=== PATIENT | male | born 1980 | race Caucasian/White ===

== ENCOUNTER 2019-10-02 20:39 | Emergency (ER) | payer OTHER ==
[2019-10-02 22:20] VITALS: BP 149/90
[2019-10-02] MEDS ORDERED: DIPH/PERTUSS(ACELL)/TETANUS VAC/PF 0.5 ML SYR (>=10YO) IM ONE (22:25)
--- NOTE | 2019-10-02 22:44 | ER Document Report ---
ED Wound - General Chief Complaint: Laceration Stated Complaint: LACERATION LEFT FINGER Time Seen by Provider: 10/02/19 22:24 Mode of Arrival: Ambulatory Information source: Patient Notes: Patient is a 39-year-old male comes emergency room complaining of nipping and of his left middle finger while cutting with a knife. Patient states that 1 could bleeding so was recommended come down to emergency room. States last tetanus shot he is received was when he is in [employer] 13 years ago. He was using a kitchen knife at the time of the incident tonight. Denies any medical problems. Does not smoke drink or do drugs. TRAVEL OUTSIDE OF THE [place] IN LAST 30 DAYS: No - HPI Patient complains to provider of: Laceration Occurred: Just prior to arrival Onset/Duration: Sudden Quality of pain: Achy Severity: Moderate Pain Level: 2 Context: Injury Skin Temperature: Warm Skin Color: Normal, [place] Capillary refill: < 3 seconds Sensations intact: Yes Distal pulses present: Yes Associated Symptoms: Avulsion - Related Data Home Medications: cymblta, arthitic med, med for elevated triglyerirdes Past Medical History - General Information source: Patient - Social History Smoking Status: Never Smoker Frequency of alcohol use: None Drug Abuse: None Family History: Reviewed & Not Pertinent Patient has homicidal ideation: No Review of Systems - Review of Systems Constitutional: No symptoms reported EENT: No symptoms reported Cardiovascular: No symptoms reported Respiratory: No symptoms reported Gastrointestinal: No symptoms reported Genitourinary: No symptoms reported Male Genitourinary: No symptoms reported Musculoskeletal: No symptoms reported Skin: See HPI, Other - Avulsion laceration Hematologic/Lymphatic: No symptoms reported Neurological/Psychological: No symptoms reported Physical Exam - Vital signs Vitals: Temp Pulse Resp BP Pulse Ox 98.1 F 95 16 149/90 H 99 10/02/19 20:43 10/02/19 20:43 10/02/19 20:43 10/02/19 20:43 10/02/19 20:43 Interpretation: Hypertensive - Notes Notes: PHYSICAL EXAMINATION: GENERAL: Well-appearing, well-nourished and in no acute distress. HEAD: Atraumatic, normocephalic. LUNGS: Breath sounds clear to auscultation bilaterally and equal. No wheezes rales or rhonchi. HEART: Regular rate and rhythm without murmurs Musculoskeletal: Normal range of motion, no pitting or edema. No cyanosis. Examination patient's area concern is his left middle finger he has full range of motion the avulsion laceration is on the distal tip of the finger right at the tip of the nail bed medially. It is into the vascular bed and but not deep. He has amputated that portion to wear a suture will not pull it together. The area is approximately three fourths of a centimeter on the pad itself. PSYCH: Normal mood, normal affect. SKIN: See musculoskeletal above for full details. Course - Re-evaluation Re-evalutation: 10/02/19 22:43 Area was cleaned with some sterile water and Betadine. Decided that there was no suturing would pull this together so we used Surgicel/quick clot and applied it to the area. Then we dressed the area. - Vital Signs Vital signs: Temp Pulse Resp BP Pulse Ox 98.2 F 95 16 149/90 H 99 10/02/19 22:13 10/02/19 20:43 10/02/19 20:43 10/02/19 20:43 10/02/19 20:43 Procedures - Laceration/Wound Repair Left 3rd digit Time completed: 22:44 Wound length (cm): 0.5 Wound's Depth, Shape: Superficial Laceration pre-procedure: Betadine prep applied Wound explored: Clean Irrigated w/ Saline (mLs): 50 Wound Debrided: Minimal Wound Repaired With: Other - Used quick clot and applied dressing to the tip of the left middle finger. Post-procedure wound care: Sterile dressing applied Post-procedure NV exam normal: Yes Complications: No Discharge - Discharge Clinical Impression: Laceration Disposition: HOME, SELF-CARE Instructions: Laceration Care ([facility]) Additional Instructions: As we discussed this is a cloth material that helps coagulate the area since urine just into the vascular bed and we cannot put any sutures into the area. Leave this on for 48 hours. After 48 hours you can take off the outer dressing soak it in some water and that he get very soft and then slowly peeled the cloth material away from the wound. I do not want [place] to start bleeding again. At this point you can apply a Band-Aid with some antibiotic lotion or cream on it and should be good to go at that point just remember this is going to turn the area pitch black which is normal because of the clotting factors involved. Should you have any concerns or problems or if the area appears to not be healing appropriately return to ER for reevaluation. Forms: Elevated Blood Pressure
== END 2019-10-02 22:55 | disposition home or self-care (01) ==
LOC: ER 20:39
DX: S61.213A Laceration without foreign body of left middle finger without damage to nail, initial encounter (principal); W26.0XXA Contact with knife, initial encounter; Z23 Encounter for immunization
CPT/HCPCS: 90471; 90715; 99282